=== PATIENT | female | born 2000 | race Caucasian/White ===

== ENCOUNTER 2025-05-13 08:12 | Emergency (ER) | payer BC, MEDICAID ==
[~2025-05-13] VITALS: Ht 157.5 cm; Wt 61.2 kg
[2025-05-13 08:26] VITALS: BP 123/85
[2025-05-13 09:34] VITALS: TEMP 99.5
[2025-05-13 10:00] LABS: STREP A SCREEN NEGATIVE (Neg)
[2025-05-13] MEDS ORDERED: PENI-88 PO (10:37)
--- NOTE | 2025-05-13 10:39 | Physician Documentation ---
History of Present Illness ~ Chief Complaint: Sore Throat Stated Complaint: SORE THROAT Time Seen by MD: 09:20 OK to notify your PCP?: Yes Source: patient Mode of Arrival: POV Exam Limitations: no limitations HPI 24-year-old female with chief complaint sore throat that started three days ago. She reports subjective fever and chills. Denies any other symptoms. She denies any history of strep throat. She denies sinus pain, ear pain, chest pain, cough, nausea. Medication Reconciliation Allergies: Coded Allergies: No Known Allergies (Unverified , 05/13/25) Past Medical History Past Medical History: No Pertinent History Drug Use: none Lives In: Home Occupation: employed Review of Systems All Other Systems at this time: Reviewed and Negative Physical Exam Vital Signs: Temperature: 99.5, Source: Oral, Heart Rate: 114, Respiratory Rate: 12, BP: 123/85, Pulse Oximetry: 99, Weight: 61.200 Oxygen Flow Rate: 0 Physical Exam General Appearance: Alert, WD/WN. NAD. HEENT: NCAT, PERRL, EOMI. Bulbar conjunctiva clear no increased injection no increased tearing, no tenderness over the sinuses, posterior pharyngeal wall erythematous tonsils are enlarged but symmetrical, uvula midline, white exudate on the tonsils bilaterally. Neck: Supple, trachea midline. Submandibular lymphadenopathy with tenderness to palpation. Cardiovascular: RRR. No m/r/g. Lungs: CTAB. Breathing unlabored Extremities: Normal inspection. No edema. Skin: Warm/dry, normal color Neurological: Alert and oriented x4, normal gait. Psychiatric: Affect congruent with mood. Progress Results/Orders Results/Orders Orders - SANTOSH SEBASTIAN Cult Throat + R/O Beta Strep (05/13/25 10:00) Completed Orders - SANTOSH SEBASTIAN Strep A Rapid (05/13/25 09:37) Vital Signs 05/13/25 05/13/25 08:26 09:34 Temp 99.1 99.5 Pulse 120 114 Resp 20 12 B/P (MAP) 123/85 Pulse Ox 99 99 O2 Flow Rate 0 0 Laboratory Tests Test 05/13/25 09:29 Group A Streptococcus Rapid Negative Medical Decision Making Throat Diff Dx: Considerations: Include: AIDS, Epiglottitis, Esophageal candidiasis, Hand foot mouth disease, Herpangina, Herpetic stomatitis, Herpes simplex, Infection mononucleosis, Immunodeficiency, Mj's angina, Peritonsillar abscess, Peritonsillar cellulitis, Pharyngitis-diphtheria, Pharyngitis-strepococcal, Pharyngitis-viral, Thrush, URI Additional Comment Considering patient's symptoms are very localized to her tonsils/throat with lack of other systemic symptoms I do have a higher suspicion that this is bacterial rather than viral even though her strep test was negative. Departure Time of Disposition: 10:36 Disposition: 01 HOME / SELF CARE / HOMELESS Impression: Primary Impression: Acute tonsillitis Qualified Codes: J03.90 - Acute tonsillitis, unspecified Condition: Stable Discharge Instructions: Tonsillitis Additional Instructions: antibiotic sent to pharmacy salt water gargle tylenol/motrin for pain and fever as needed Departure Forms: Excuse form Work or School Excused From: Work Excuse beginning now through the following date: May 14, 2025 May Return but still avoid physical Activity from now until: May 15, 2025 Referrals: NO PRIMARY CARE PROVIDER (PCP) Prescriptions Penicillin V Potassium (PENICILLIN V POTASSIUM tablet) 500 Mg Tablet 1 TAB PO Q8H for 10 Days, #30 TAB Prov: SANTOSH SEBASTIAN 05/13/25 Education Educated: Patient Educated regarding: diagnosis, treatment, need for follow up Signature Scribe Signature: x Attestation: SANTOSH Wang May 13, 2025 10:39
[2025-05-13 10:48] VITALS: PULSE 108; RESP 16; O2SAT 99
== END 2025-05-13 10:50 | disposition home or self-care (01) ==
LOC: ER 08:13
DX: J03.90 Acute tonsillitis, unspecified (principal)
CPT/HCPCS: 87077; 87081; 87880; 99283